=== PATIENT | female | born 1990 | race Asian ===

== ENCOUNTER 2020-01-20 21:02 | Emergency (ER) | payer BC, OTHER ==
[~2020-01-20] VITALS: Ht 170.2 cm; Wt 156.2 kg
--- NOTE | 2020-01-20 22:01 | NUR ---
assumed care of pt. report from Ava CRAIG. pt here for COVID R/O as she has recently lost her sense of taste and smell as well as having body aches and fevers [employer]. pt is currently in no apparent distress. resting in position of comfort watching videos on cell phone
[2020-01-21 00:02] VITALS: BP 150/79
== END 2020-01-21 00:08 | disposition home or self-care (01) ==
LOC: ED 22:03
DX: J12.9 Viral pneumonia, unspecified (principal); B34.9 Viral infection, unspecified; F17.200 Nicotine dependence, unspecified, uncomplicated; R06.02 Shortness of breath
CPT/HCPCS: 36415; 71045; 87635; 99283